=== PATIENT | female | born 1970 | race Caucasian/White ===

== ENCOUNTER 2016-11-05 04:10 | Emergency (ER) | payer BC ==
[~2016-11-05] VITALS: Ht 165.1 cm; Wt 81.0 kg
[~2016-11-05 04:10] MED LIST: OMEP40CA PO
[2016-11-05] MEDS ORDERED: SODIUM CHLORIDE 0.9% 1,000 ML IV ONE (04:43)
[2016-11-05] MEDS ORDERED: ONDANSETRON HCL 4MG/2ML VIAL IV STA (04:43)
[2016-11-05] MEDS ORDERED: MORPHINE SULFATE 4 MG/ML CPJ (NOT FOR IM USE) IV STA (04:43)
[2016-11-05 05:08] LABS: BASOPHILS % 0.8 % (0.0-2.0); EOSINOPHILS % 4.2 % (0.0-5.0); HEMATOCRIT. 37.4 % (36.0-48.0); HEMOGLOBIN. 12.9 g/dL (12.0-16.0); LYMPHOCYTES % 38.7 % (20.0-50.0); MEAN CORPUSCULAR HEMOGLOBIN 30.8 pg (28.0-32.0); MEAN CORPUSCULAR HGB CONC 34.4 g/dL (31.0-37.0); MEAN CORPUSCULAR VOLUME 89.5 fL (81.0-99.0); MONOCYTES % 8.7 % (2.0-8.0); NEUTROPHILS % 47.6 % (40.0-76.0); PLATELET 191 x1000/uL (130-400); RED BLOOD CELL COUNT 4.17 mill/uL (4.2-5.4); RED CELL DISTRIBUTION WIDTH 13.9 % (11.6-14.6); WHITE BLOOD COUNT 6.2 x1000/uL (4.5-11.0)
[2016-11-05] MEDS ORDERED: MORPHINE SULFATE 4 MG/ML CPJ (NOT FOR IM USE) IV ONE (05:45)
[2016-11-05] MEDS ORDERED: KETOROLAC 30MG/ML VIAL IV ONE (10:30)
[2016-11-05 10:32] VITALS: BP 102/56
[2016-11-05 10:52] LABS: CLARITY URINE CLEAR (CLEAR); COLOR URINE YELLOW (YELLOW); GLUCOSE URINE NEGATIVE (NEGATIVE); KETONES URINE NEGATIVE (NEGATIVE); LEUKOCYTE ESTERASE URINE 1+ (NEGATIVE); NITRITE URINE NEGATIVE (NEGATIVE); OCCULT BLOOD URINE NEGATIVE (NEGATIVE); PH URINE 6.5 (4.5-8.0); PROTEIN URINE NEGATIVE (NEGATIVE); SPECIFIC GRAVITY URINE 1.009 (1.005-1.030); UROBILINOGEN URINE 0.2 E.U./dL (0.2-1.0)
[2016-11-05 11:39] LABS: MUCUS URINE TRACE /lpf (< = 2+); SQUAMOUS EPITHELIAL CELL URINE 1+ /lpf (RARE/1+)
[2016-11-05 11:40] LABS: BACTERIA URINE TRACE
[2016-11-05 11:43] LABS: RBC URINE NONE SEEN /hpf (0-2); WBC URINE 0-2 /hpf (0-2)
== END 2016-11-05 14:22 | disposition home or self-care (01) ==
LOC: ER 04:10
DX: M25.551 Pain in right hip (principal); R10.31 Right lower quadrant pain; F41.9 Anxiety disorder, unspecified; J45.909 Unspecified asthma, uncomplicated; Z90.49 Acquired absence of other specified parts of digestive tract; Z90.710 Acquired absence of both cervix and uterus; Z88.1 Allergy status to other antibiotic agents; Z88.6 Allergy status to analgesic agent; Z79.899 Other long term (current) drug therapy
CPT/HCPCS: 36415; 73502; 74176; 81001; 85025; 96361; 96374; 96375; 96376; 99285; J1885; J2270; J2405; J7030

== ENCOUNTER 2017-06-02 15:17 | Emergency (ER) | payer BC ==
[~2017-06-02] VITALS: Ht 165.1 cm; Wt 86.0 kg
[2017-06-02 16:06] LABS: BASOPHILS % 0.8 % (0.0-2.0); EOSINOPHILS % 5.9 % (0.0-5.0); HEMATOCRIT. 41.1 % (36.0-48.0); HEMOGLOBIN. 13.8 g/dL (12.0-16.0); MEAN CORPUSCULAR VOLUME 92.1 fL (81.0-99.0); MEAN PLATELET VOLUME 9.1 fl (7.4-10.4); NEUTROPHILS % 45.3 % (40.0-76.0); PLATELET 237 x1000/uL (130-400); RED BLOOD CELL COUNT 4.46 mill/uL (4.2-5.4); RED CELL DISTRIBUTION WIDTH 13.8 % (11.6-14.6)
[2017-06-02 16:12] LABS: CARBON DIOXIDE 31 mEq/L (21-32); CHLORIDE 105 mEq/L (98-107)
[2017-06-02 16:16] LABS: CREATINE KINASE 61 IU/L (26-192); TROPONIN I < 0.02 ng/mL (0.00-0.04)
[2017-06-02 16:20] LABS: HCG SCREEN NEGATIVE
[2017-06-02 18:08] VITALS: BP 90/54
== END 2017-06-02 18:44 | disposition home or self-care (01) ==
LOC: ER 15:17
DX: S46.921A Laceration of unspecified muscle, fascia and tendon at shoulder and upper arm level, right arm, initial encounter (principal); M62.838 Other muscle spasm; Z88.1 Allergy status to other antibiotic agents; Z88.8 Allergy status to other drugs, medicaments and biological substances; X58.XXXA Exposure to other specified factors, initial encounter; Y93.89 Activity, other specified; Y92.89 Other specified places as the place of occurrence of the external cause; Y99.8 Other external cause status
CPT/HCPCS: 36415; 71010; 73221; 80053; 82550; 83690; 84484; 84703; 85025; 85651; 99285

== ENCOUNTER 2017-06-10 09:33 | Emergency (ER) | payer BC ==
[~2017-06-10] VITALS: Ht 157.5 cm; Wt 90.0 kg
[2017-06-10 10:05] LABS: BASOPHILS % 0.3 % (0.0-2.0); EOSINOPHILS % 4.8 % (0.0-5.0); HEMATOCRIT. 43.5 % (36.0-48.0); HEMOGLOBIN. 14.8 g/dL (12.0-16.0); LYMPHOCYTES % 9.6 % (20.0-50.0); MEAN CORPUSCULAR HEMOGLOBIN 31.1 pg (28.0-32.0); MEAN CORPUSCULAR VOLUME 91.6 fL (81.0-99.0); MEAN PLATELET VOLUME 9.3 fl (7.4-10.4); MONOCYTES % 4.1 % (2.0-8.0); NEUTROPHILS % 81.2 % (40.0-76.0); PLATELET 218 x1000/uL (130-400); RED BLOOD CELL COUNT 4.75 mill/uL (4.2-5.4); RED CELL DISTRIBUTION WIDTH 13.7 % (11.6-14.6)
[2017-06-10] MEDS: ONDANSETRON HCL 4MG/2ML VIAL IV STA (10:06)
[2017-06-10] MEDS: FENTANYL CITRATE/PF 50MCG/ML 2ML VIAL IV ONE ×2 (10:06→12:48)
[2017-06-10] MEDS: SODIUM CHLORIDE 0.9% 1,000 ML IV ONE (10:06)
[2017-06-10 10:22] LABS: CARBON DIOXIDE 28 mEq/L (21-32); CHLORIDE 107 mEq/L (98-107)
[2017-06-10 10:31] LABS: CLARITY URINE CLEAR (CLEAR); COLOR URINE YELLOW (YELLOW); KETONES URINE NEGATIVE (NEGATIVE); LEUKOCYTE ESTERASE URINE 3+ (NEGATIVE); NITRITE URINE NEGATIVE (NEGATIVE); OCCULT BLOOD URINE NEGATIVE (NEGATIVE); PROTEIN URINE NEGATIVE (NEGATIVE); SPECIFIC GRAVITY URINE 1.024 (1.005-1.030); UROBILINOGEN URINE 0.2 E.U./dL (0.2-1.0)
[2017-06-10 10:35] LABS: INR 1.1; PROTHROMBIN TIME 11.2 sec (9.4-11.6)
[2017-06-10 10:42] LABS: HCG SCREEN NEGATIVE
[2017-06-10] MEDS ORDERED: IOHEXOL-300 100 ML BOTTLE ONE (12:40)
[2017-06-10] MEDS: ONDANSETRON HCL 4MG/2ML VIAL IV ONE (12:49)
[2017-06-10] MEDS: METOCLOPRAMIDE HCL 10MG/2ML VIAL IV ONE (13:02)
[2017-06-10] MEDS ORDERED: FAMOTIDINE 20MG/2ML VIAL IV ONE (13:45)
[2017-06-10 14:18] VITALS: BP 95/62
== END 2017-06-10 14:26 | disposition home or self-care (01) ==
LOC: ER 09:33
DX: R10.13 Epigastric pain (principal); R11.0 Nausea; Z88.1 Allergy status to other antibiotic agents; Z88.0 Allergy status to penicillin; Z88.8 Allergy status to other drugs, medicaments and biological substances; Z98.84 Bariatric surgery status
CPT/HCPCS: 36415; 74177; 80053; 81001; 83690; 84703; 85025; 85610; 96361; 96374; 96375; 96376; 99285; J2405; J2765; J3010; J3490; J7030; Q9967; Z7610

== ENCOUNTER 2017-07-08 07:33 | Emergency (ER) | payer BC ==
[~2017-07-08] VITALS: Ht 167.6 cm; Wt 155.0 kg
[2017-07-08 07:40] VITALS: BP 95/63
[2017-07-08] MEDS ORDERED: KETOROLAC 30MG/ML VIAL IM ONE (08:00)
[2017-07-08] MEDS ORDERED: METHOCARBAMOL 500MG TABLET PO ONE (08:15)
== END 2017-07-08 10:09 | disposition home or self-care (01) ==
LOC: ER 07:56
DX: S46.811A Strain of other muscles, fascia and tendons at shoulder and upper arm level, right arm, initial encounter (principal); J45.909 Unspecified asthma, uncomplicated; X50.9XXA Other and unspecified overexertion or strenuous movements or postures, initial encounter; Y93.89 Activity, other specified; Y92.512 Supermarket, store or market as the place of occurrence of the external cause; Y99.8 Other external cause status; Z88.0 Allergy status to penicillin; Z88.1 Allergy status to other antibiotic agents; Z90.49 Acquired absence of other specified parts of digestive tract; Z90.710 Acquired absence of both cervix and uterus; Z98.890 Other specified postprocedural states
CPT/HCPCS: 96372; 99283; J1885

== ENCOUNTER 2017-07-15 17:24 | Emergency (ER) | payer BC ==
[~2017-07-15] VITALS: Ht 165.1 cm; Wt 86.0 kg
[2017-07-15] MEDS ORDERED: KETOROLAC 60MG/2ML VIAL IM ONE (18:00)
[2017-07-15 18:02] VITALS: BP 98/57
== END 2017-07-15 18:06 | disposition home or self-care (01) ==
LOC: ER 17:49
DX: M75.101 Unspecified rotator cuff tear or rupture of right shoulder, not specified as traumatic (principal); J45.909 Unspecified asthma, uncomplicated; Z88.1 Allergy status to other antibiotic agents; Z88.0 Allergy status to penicillin; Z88.5 Allergy status to narcotic agent
CPT/HCPCS: 73030; 96372; 99284; J1885

== ENCOUNTER → 2017-07-29 | Outpatient (CLI) | payer BC | END | disposition home or self-care (01) | LOC: MAMMO 07:39 | PROVIDERS: ATTEND Internal Medicine Geriatric Medicine | DX: Z12.31 Encounter for screening mammogram for malignant neoplasm of breast (principal) | CPT/HCPCS: 77067 ==

== ENCOUNTER 2017-08-05 09:33 | Emergency (ER) | payer BC ==
[~2017-08-05] VITALS: Ht 170.2 cm; Wt 75.0 kg
[2017-08-05] MEDS ORDERED: ACETAMINOPHEN 500MG TABLET PO ONE (09:45)
[2017-08-05] MEDS ORDERED: KETOROLAC 15MG/ML VIAL IM ONE (09:45)
[2017-08-05 11:31] VITALS: BP 118/65
== END 2017-08-05 11:32 | disposition home or self-care (01) ==
LOC: ER 09:33
DX: M25.511 Pain in right shoulder (principal); Z88.1 Allergy status to other antibiotic agents; Z88.6 Allergy status to analgesic agent; Z90.710 Acquired absence of both cervix and uterus; Z90.49 Acquired absence of other specified parts of digestive tract
CPT/HCPCS: 96372; 99283; J1885; Z7610

== ENCOUNTER 2017-08-07 11:24 | Emergency (ER) | payer BC ==
[~2017-08-07] VITALS: Ht 165.1 cm; Wt 84.0 kg
[2017-08-07] MEDS ORDERED: MORPHINE SULFATE 10 MG/ML CPJ IM ONE (11:45)
[2017-08-07] MEDS ORDERED: ONDANSETRON HCL 4MG/2ML VIAL ONE (12:05)
[2017-08-07] MEDS ORDERED: DIPHENHYDRAMINE 50MG/ML VIAL ONE (12:14)
[2017-08-07] MEDS ORDERED: DIPHENHYDRAMINE 50MG/ML VIAL IV ONE (12:15)
[2017-08-07] MEDS ORDERED: ONDANSETRON HCL 4MG/2ML VIAL IV ONE (12:15)
[2017-08-07] MEDS ORDERED: KETOROLAC 30MG/ML VIAL IV ONE (15:15)
[2017-08-07] MEDS ORDERED: CARISOPRODOL 350 MG TABLET PO ONE (15:15)
[2017-08-07 15:54] VITALS: BP 104/69
== END 2017-08-07 16:36 | disposition home or self-care (01) ==
LOC: ER 12:57
DX: M25.511 Pain in right shoulder (principal); Z88.1 Allergy status to other antibiotic agents; Z88.0 Allergy status to penicillin; Z88.5 Allergy status to narcotic agent
CPT/HCPCS: 96372; 96374; 96375; 99284; J1200; J1885; J2270; J2405; Z7610

== ENCOUNTER → 2017-09-16 | Outpatient (CLI) | payer BC ==
[2017-09-16 09:26] LABS: CLARITY URINE CLEAR (CLEAR); COLOR URINE YELLOW (YELLOW); KETONES URINE NEGATIVE (NEGATIVE); LEUKOCYTE ESTERASE URINE 1+ (NEGATIVE); NITRITE URINE NEGATIVE (NEGATIVE); OCCULT BLOOD URINE NEGATIVE (NEGATIVE); PROTEIN URINE NEGATIVE (NEGATIVE); SPECIFIC GRAVITY URINE 1.018 (1.005-1.030); UROBILINOGEN URINE 0.2 E.U./dL (0.2-1.0)
[2017-09-16 09:38] LABS: PARTIAL THROMBOPLASTIN TIME 26.4 sec (23.4-31.0); PROTHROMBIN TIME 10.4 sec (9.4-11.6)
[2017-09-16 10:11] LABS: CHLORIDE 108 mEq/L (98-107)
[2017-09-16 10:28] LABS: T4 FREE 0.95 ng/dL (0.76-1.46)
[2017-09-16 14:23] LABS: BASOPHILS % 0.8 % (0.0-2.0); EOSINOPHILS % 6.1 % (0.0-5.0); HEMATOCRIT. 42.2 % (36.0-48.0); HEMOGLOBIN. 13.9 g/dL (12.0-16.0); MEAN CORPUSCULAR HEMOGLOBIN 30.5 pg (28.0-32.0); MEAN CORPUSCULAR VOLUME 92.5 fL (81.0-99.0); MEAN PLATELET VOLUME 9.7 fl (7.4-10.4); MONOCYTES % 6.8 % (2.0-8.0); NEUTROPHILS % 49.3 % (40.0-76.0); PLATELET 218 x1000/uL (130-400); RED BLOOD CELL COUNT 4.56 mill/uL (4.2-5.4); RED CELL DISTRIBUTION WIDTH 13.6 % (11.6-14.6)
== END | disposition home or self-care (01) ==
LOC: LAB 08:07
PROVIDERS: ATTEND Internal Medicine Geriatric Medicine
DX: Z01.812 Encounter for preprocedural laboratory examination (principal); N39.0 Urinary tract infection, site not specified; Z79.899 Other long term (current) drug therapy; Z79.01 Long term (current) use of anticoagulants
CPT/HCPCS: 36415; 80053; 81003; 84439; 84443; 84480; 85025; 85610; 85730; 87086

== ENCOUNTER 2017-10-04 07:05 | Emergency (ER) | payer BC ==
[~2017-10-04] VITALS: Ht 165.1 cm; Wt 87.4 kg
[2017-10-04] MEDS ORDERED: SODIUM CHLORIDE 0.9% 1000ML BAG (SEPSIS BOLUS) IV ONE (07:45)
[2017-10-04] MEDS ORDERED: ONDANSETRON HCL 4MG/2ML VIAL IV ONE (08:15)
[2017-10-04] MEDS ORDERED: MORPHINE SULFATE 4 MG/ML CPJ (NOT FOR IM USE) IV ONE (08:15)
[2017-10-04 08:24] LABS: CHLORIDE 107 mEq/L (98-107)
[2017-10-04 08:40] LABS: BASOPHILS % 1.1 % (0.0-2.0); EOSINOPHILS % 4.7 % (0.0-5.0); HEMATOCRIT. 41.7 % (36.0-48.0); HEMOGLOBIN. 13.9 g/dL (12.0-16.0); LYMPHOCYTES % 26.6 % (20.0-50.0); MEAN CORPUSCULAR HEMOGLOBIN 30.6 pg (28.0-32.0); MEAN CORPUSCULAR VOLUME 91.5 fL (81.0-99.0); MONOCYTES % 12.6 % (2.0-8.0); PLATELET 192 x1000/uL (130-400); RED BLOOD CELL COUNT 4.55 mill/uL (4.2-5.4); RED CELL DISTRIBUTION WIDTH 13.5 % (11.6-14.6)
[2017-10-04 08:41] LABS: HCG SCREEN NEGATIVE
[2017-10-04 08:44] LABS: PARTIAL THROMBOPLASTIN TIME 28.1 sec (23.4-31.0); PROTHROMBIN TIME 10.5 sec (9.4-11.6)
[2017-10-04] MEDS ORDERED: DIPHENHYDRAMINE 50MG/ML VIAL IV ONE (08:45)
[2017-10-04] MEDS ORDERED: IOHEXOL-300 100 ML BOTTLE ONE (09:32)
[2017-10-04] MEDS ORDERED: CEFTRIAXONE 1 G PREMIX 50 ML IV ONE (10:00)
[2017-10-04 12:20] VITALS: BP 98/57
== END 2017-10-04 12:24 | disposition home or self-care (01) ==
LOC: ER 07:29
DX: K04.7 Periapical abscess without sinus (principal); K21.9 Gastro-esophageal reflux disease without esophagitis; Z88.3 Allergy status to other anti-infective agents; Z88.0 Allergy status to penicillin; Z90.710 Acquired absence of both cervix and uterus; Z90.49 Acquired absence of other specified parts of digestive tract; Z98.51 Tubal ligation status; Z87.828 Personal history of other (healed) physical injury and trauma
CPT/HCPCS: 36415; 70487; 70491; 80048; 83605; 84703; 85025; 85610; 85730; 87040; 87086; 96361; 96365; 96366; 96375; 99285; J0696; J1200; J2270; J2405; J7030; Q9967

== ENCOUNTER → 2017-10-19 | Outpatient (CLI) | payer BC ==
[~2017-10-19] MED LIST changes: +ACET-2178 PO; +HYDR-4001 PO
== END | disposition home or self-care (01) ==
LOC: RAD 15:15
PROVIDERS: ATTEND Internal Medicine Geriatric Medicine
DX: Z01.818 Encounter for other preprocedural examination (principal); N39.0 Urinary tract infection, site not specified; Z79.01 Long term (current) use of anticoagulants; Z79.899 Other long term (current) drug therapy
CPT/HCPCS: 71046

== ENCOUNTER 2017-10-22 05:45 | Day surgery (SDC) | payer BC ==
[~2017-10-22] VITALS: Ht 165.1 cm; Wt 88.0 kg
[2017-10-22] MEDS ORDERED: LACTATED RINGERS 1,000 ML IV SCH (06:00)
[2017-10-22] MEDS ORDERED: ROPIVACAINE HCL 10MG/ML 20 ML VIAL EPI ONE ×2 (07:18→07:25)
[2017-10-22] MEDS ORDERED: BUPIVACAINE HCL/EPINEPHRINE/PF 0.5%/0.0005 10ML ONE (07:22)
[2017-10-22] MEDS ORDERED: NEOSTIGMINE METHYLSULFATE 1MG/ML 10 ML VIAL ONE (07:22)
[2017-10-22] MEDS ORDERED: ROCURONIUM BROMIDE 10MG/ML VIAL 5ML IV ONE (07:22)
[2017-10-22] MEDS ORDERED: FENTANYL CITRATE/PF 50MCG/ML 2ML VIAL ONE (07:22)
[2017-10-22] MEDS ORDERED: EPINEPHRINE 1:1000 1 MG/ML AMP ONE (07:22)
[2017-10-22] MEDS ORDERED: PROPOFOL 200MG/20ML VIAL IV ONE (07:23)
[2017-10-22] MEDS ORDERED: PHENYLEPHRINE HCL 10 MG/ML 1ML (IV VIAL) IV ONE (07:23)
[2017-10-22] MEDS ORDERED: MIDAZOLAM HCL 2 MG/2 ML VIAL ONE (07:23)
[2017-10-22] MEDS ORDERED: EPHEDRINE SULFATE 50MG/ML VIAL ONE (07:23)
[2017-10-22] MEDS ORDERED: DEXAMETHASONE 4MG/ML 1ML VIAL ONE (07:23)
[2017-10-22] MEDS ORDERED: GLYCOPYRROLATE 0.2 MG/ML 2ML VIAL ONE ×2 (07:23→08:46)
[2017-10-22] MEDS ORDERED: CEFAZOLIN SODIUM 1000MG/VIAL ONE (07:23)
[2017-10-22] MEDS ORDERED: SUCCINYLCHOLINE CHLORIDE 200MG/10ML VIAL IV ONE (07:23)
[2017-10-22] MEDS ORDERED: LIDOCAINE HCL/PF 1% 10 MG/ML 5ML VIAL ONE (07:23)
[2017-10-22] MEDS ORDERED: ONDANSETRON HCL 4MG/2ML VIAL ONE (07:23)
[2017-10-22] MEDS ORDERED: SODIUM CHLORIDE 0.9% 1,000 ML IV ONE (09:16)
[2017-10-22 09:30] VITALS: BP 92/48
[2017-10-22] MEDS ORDERED: MEPERIDINE HCL/PF 25MG/ML CPJ IV PRN ×2 (09:30)
[2017-10-22] MEDS ORDERED: ONDANSETRON HCL 4MG/2ML VIAL IV PRN (09:30)
== END 2017-10-22 12:35 | disposition home or self-care (01) ==
LOC: OR 05:45
PROVIDERS: ATTEND Orthopaedic Surgery Sports Medicine
DX: M75.101 Unspecified rotator cuff tear or rupture of right shoulder, not specified as traumatic (principal); M75.41 Impingement syndrome of right shoulder; M75.51 Bursitis of right shoulder; K21.9 Gastro-esophageal reflux disease without esophagitis; J45.909 Unspecified asthma, uncomplicated; G89.29 Other chronic pain; Z88.1 Allergy status to other antibiotic agents; Z88.8 Allergy status to other drugs, medicaments and biological substances; Z79.01 Long term (current) use of anticoagulants; Z90.710 Acquired absence of both cervix and uterus; Z90.49 Acquired absence of other specified parts of digestive tract; Z88.0 Allergy status to penicillin; Z98.51 Tubal ligation status; Z98.890 Other specified postprocedural states
CPT/HCPCS: 29823; 29826; 29827; 88304; 88311; J0171; J0330; J0690; J1100; J2175; J2250; J2370; J2405; J2710; J2795; J3010; J3490; J7120; A4565; J2704

== ENCOUNTER 2018-03-20 00:27 | Emergency (ER) | payer BC ==
[~2018-03-20] VITALS: Ht 165.1 cm; Wt 82.0 kg
[2018-03-20] MEDS ORDERED: SODIUM CHLORIDE 0.9% 1,000 ML IV ONE (01:33)
[2018-03-20] MEDS ORDERED: ONDANSETRON HCL 4MG/2ML INJ IV STA (01:33)
[2018-03-20] MEDS ORDERED: FENTANYL CITRATE/PF 50MCG/ML 2ML VIAL IV ONE ×3 (01:45→06:30)
[2018-03-20 02:39] LABS: CHLORIDE 106 mEq/L (98-107)
[2018-03-20 02:47] LABS: CREATINE KINASE 195 IU/L (26-192)
[2018-03-20] MEDS ORDERED: IOHEXOL-300 100 ML BOTTLE ONE (03:20)
[2018-03-20 03:33] LABS: BASOPHILS % 0.1 % (0.0-2.0); HEMOGLOBIN. 13.1 g/dL (12.0-16.0); LYMPHOCYTES % 11.6 % (20.0-50.0); MEAN CORPUSCULAR HEMOGLOBIN 30.4 pg (28.0-32.0); MEAN CORPUSCULAR VOLUME 92.5 fL (81.0-99.0); MEAN PLATELET VOLUME 9.9 fl (7.4-10.4); NEUTROPHILS % 87.3 % (40.0-76.0); PLATELET 225 x1000/uL (130-400); RED BLOOD CELL COUNT 4.32 mill/uL (4.2-5.4); RED CELL DISTRIBUTION WIDTH 13.7 % (11.6-14.6)
[2018-03-20] MEDS ORDERED: FENTANYL CITRATE/PF 50MCG/ML 2ML VIAL ONE (06:34)
[2018-03-20 07:11] VITALS: BP 100/63
== END 2018-03-20 07:38 | disposition short-term general hospital (02) ==
LOC: ER 00:27
DX: S27.321A Contusion of lung, unilateral, initial encounter (principal); S00.83XA Contusion of other part of head, initial encounter; J94.2 Hemothorax; M79.1 Myalgia; Z90.49 Acquired absence of other specified parts of digestive tract; Z90.710 Acquired absence of both cervix and uterus; Z88.1 Allergy status to other antibiotic agents; Z88.5 Allergy status to narcotic agent; Z88.6 Allergy status to analgesic agent; Z79.899 Other long term (current) drug therapy; V89.2XXA Person injured in unspecified motor-vehicle accident, traffic, initial encounter; Y93.89 Activity, other specified; Y92.89 Other specified places as the place of occurrence of the external cause; Y99.8 Other external cause status
CPT/HCPCS: 36415; 70450; 71045; 71260; 72125; 72170; 74177; 80048; 82550; 83690; 84484; 85025; 86850; 86900; 86901; 93005; 96374; 96375; 96376; 99291; J2405; J3010; J7030; Q9967; Z7610; 96372

== ENCOUNTER → 2018-05-24 | Outpatient (CLI) | payer BC | END | disposition home or self-care (01) | LOC: MAMMO 11:08 | PROVIDERS: ATTEND Internal Medicine Geriatric Medicine | DX: Z13.820 Encounter for screening for osteoporosis (principal); M81.0 Age-related osteoporosis without current pathological fracture; S22.39XA Fracture of one rib, unspecified side, initial encounter for closed fracture; X58.XXXA Exposure to other specified factors, initial encounter; Y93.89 Activity, other specified; Y92.89 Other specified places as the place of occurrence of the external cause; Y99.8 Other external cause status | CPT/HCPCS: 77080 ==